=== PATIENT | male | born 1990 | race Caucasian/White ===

== ENCOUNTER → 2021-04-19 09:09 | Outpatient (CLI) | payer OTHER, SELFPAY ==
--- NOTE | 2021-04-19 | DI.RAD.S_ITS ---
PROCEDURE: FL SHOULDER INJECTION MR/CT RT INDICATIONS: DISLOCATION OF RIGHT SHOULDER COMPARISON: [facility], MR, MR SHOULDER RT W CON, 04/19/2021, 10:09. TECHNIQUE: The indications, alternatives, benefits, risks, and complications of the procedure were explained to the patient. Written informed consent was obtained and placed in the chart. The shoulder was examined fluoroscopically and a site for needle placement chosen for entry into the glenohumeral joint from an anterior approach. The skin was prepped and draped in a sterile fashion, and 1% lidocaine infiltrated from skin down to joint capsule. A spinal needle was inserted into the glenohumeral joint, and a small amount of iodinated contrast media injected to confirm intra-articular placement of the needle tip. This was followed by approximately 12 mL dilute solution of a gadolinium containing MR contrast agent. The needle was removed and a dressing was applied. The patient was given postprocedural instructions and sent to the MR suite for MR imaging. FINDINGS: A single fluoroscopic spot image demonstrates intra-articular location of injected iodinated contrast. IMPRESSION: Successful fluoroscopically guided administration of dilute Gadolinium solution into the shoulder joint for MR arthrogram. Dictated by: Ercik Cárdenas M.D. on 04/19/2021 at 13:15 Approved by: Erick Cárdenas M.D. on 04/19/2021 at 13:15
--- NOTE | 2021-04-19 | DI.MRI.S_ITS ---
PROCEDURE: MR SHOULDER RT W CON INDICATIONS: DISLOCATION OF RIGHT SHOULDER TECHNIQUE: After the administration of 12 mL of dilute intra-articular Gadolinium contrast, oblique coronal T1 and T2 spin echo with fat saturation, oblique sagittal T1 spin echo with and without fat saturation, oblique sagittal T2 fast spin echo with fat saturation, axial T1 spin echo with fat saturation through the shoulder. COMPARISON: [facility], CR, XR SHOULDER 2+ VIEWS RIGHT, 03/15/2021, 17:23. FINDINGS: Image quality: Excellent. Rotator cuff: Distal supraspinatus tendinosis and very low-grade articular and bursal surface partial thickness tear involving anterior fibers of distal supraspinatus at its insertion on the humeral head is seen. Distal infraspinatus and subscapularis tendons are grossly intact. No full-thickness rotator cuff tendon rupture. No rotator cuff muscle atrophy on sagittal images. Bones and bursae: Significant marrow edema involving lateral portion of humeral head is seen with Hill-Sachs deformity involving posterior lateral humeral head. No corresponding Bankart fracture is seen. Mild acromioclavicular joint osteoarthritic changes are seen. Capsule and soft tissues: There is fraying of anterior inferior labrum with subtle contrast extension suggestive of Bankart lesion. Superior labrum is intact. The glenohumeral ligaments appear intact. The long head of the biceps tendon demonstrates normal location and morphology. The rotator interval appears normal, without fibrosis. The coracohumeral ligament is of normal thickness. Curvilinear loose body within inferior aspect of glenohumeral joint is seen and measures 1.1 cm in length. IMPRESSION: 1. Marrow edema and acute to subacute appearing Hill-Sachs deformity involving humeral head as above. No corresponding Bankart fracture. 2. Tendinosis and low-grade articular and bursal surface partial thickness tear involving anterior fibers of distal supraspinatus at its insertion on the humeral head. No full-thickness rotator cuff tendon rupture. 3. Suggestion of anterior-inferior labral tear at 5 to 6 o'clock position consistent with Bankart lesion. 4. Suggestion of a linear loose body within inferior joint capsule as above. Dictated by: Michael Feliciano M.D. on 04/19/2021 at 11:41 Approved by: Michael Feliciano M.D. on 04/19/2021 at 11:45
== END ==
PROVIDERS: Referring Provider Orthopaedic Surgery; Visit Provider Orthopaedic Surgery
DX: S43.004A Unspecified dislocation of right shoulder joint, initial encounter (principal); S46.011A Strain of muscle(s) and tendon(s) of the rotator cuff of right shoulder, initial encounter
CPT/HCPCS: 23350; 73222; 77002

== ENCOUNTER → 2024-05-20 09:47 | Outpatient (CLI) | payer OTHER, SELFPAY ==
--- NOTE | 2024-05-20 09:50 | DI.RAD.S_ITS ---
PROCEDURE: FL SHOULDER INJECTION MR/CT RT INDICATIONS: DISLOCATION OF RT SHOULDER JOINT COMPARISON: None. TECHNIQUE: The indications, alternatives, benefits, risks, and complications of the procedure were explained to the patient. Written informed consent was obtained and placed in the chart. The shoulder was examined fluoroscopically and a site for needle placement chosen for entry into the glenohumeral joint from an anterior approach. The skin was prepped and draped in a sterile fashion, and 1% lidocaine infiltrated from skin down to joint capsule. A spinal needle was inserted into the glenohumeral joint, and a small amount of iodinated contrast media injected to confirm intra-articular placement of the needle tip. This was followed by approximately 12 mL dilute solution of a gadolinium containing MR contrast agent. The needle was removed and a dressing was applied. The patient was given postprocedural instructions and sent to the MR suite for MR imaging. FINDINGS: A single fluoroscopic spot image demonstrates intra-articular location of injected iodinated contrast. IMPRESSION: Successful fluoroscopically guided administration of dilute Gadolinium solution into the shoulder joint for MR arthrogram. Dictated by: Michael Feliciano M.D. on 05/20/2024 at 11:15 Approved by: Michael Feliciano M.D. on 05/20/2024 at 11:15
--- NOTE | 2024-05-20 09:50 | DI.MRI.S_ITS ---
PROCEDURE: MR SHOULDER RT W CON INDICATIONS: DISLOCATION OF RT SHOULDER JOINT TECHNIQUE: After the administration of 12 mL of dilute intra-articular Gadolinium contrast, oblique coronal T1 and T2 spin echo with fat saturation, oblique sagittal T1 spin echo with and without fat saturation, oblique sagittal T2 fast spin echo with fat saturation, axial T1 spin echo with fat saturation through the shoulder. COMPARISON: None. FINDINGS: Image quality: Excellent. Rotator cuff: There is low-grade articular and bursal surface partial thickness tear involving distal supraspinatus at its insertion on the humeral head extending to musculotendinous junction. Distal infraspinatus and subscapularis tendons are intact. No full-thickness rotator cuff tendon rupture. No rotator cuff muscle atrophy on sagittal images. Bones and bursae: Chronic appearing Hill-Sachs deformity involving posterior lateral humeral head is seen without Bankart fracture. No marrow edema. No acute fracture or dislocation. No acromioclavicular joint degeneration. Type 1 acromion, without an os acromiale. Capsule and soft tissues: There is fraying of superior anterior glenoid labrum with T2 hyperintense signal and contrast extension consistent with superior anterior glenoid labral tear. Previously described contour irregularity and contrast extension involving anterior inferior glenoid labrum is again seen and is not significantly changed. The glenohumeral ligaments appear intact. The long head of the biceps tendon demonstrates normal location and morphology. The rotator interval appears normal, without fibrosis. The coracohumeral ligament is of normal thickness. No intra-articular bodies. IMPRESSION: 1. Low-grade articular and bursal surface partial thickness tear involving distal supraspinatus extending to musculotendinous junction. No full-thickness rotator cuff tendon rupture. No muscle atrophy. 2. Chronic appearing Hill-Sachs deformity. No Bankart fracture. No marrow edema. No acute fracture or dislocation. No intra-articular loose bodies. 3. 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 There is interval development of superior anterior right glenoid labral tear. Dictated by: Michael Feliciano M.D. on 05/20/2024 at 15:38 Approved by: Michael Feliciano M.D. on 05/20/2024 at 15:49
[2024-05-20] MEDS: LIDOCAINE 1% 20 ML INJ (10:52)
[2024-05-20] MEDS: SODIUM CHLORIDE 0.9 % 20 ML VIAL IV (10:53)
== END ==
PROVIDERS: Referring Provider Orthopaedic Surgery; Visit Provider Orthopaedic Surgery
DX: S43.004A Unspecified dislocation of right shoulder joint, initial encounter (principal); M75.111 Incomplete rotator cuff tear or rupture of right shoulder, not specified as traumatic
CPT/HCPCS: 23350; 73040; 73222; A9579; Q9967